=== PATIENT | female | born 1955 | race Two or more races ===

== ENCOUNTER 2017-01-25 07:13 | Inpatient (IN) | payer OTHER ==
[~2017-01-25] VITALS: Ht 157.5 cm; Wt 62.7 kg
--- NOTE | 2017-01-25 07:18 | NUR ---
PT BIBRA 40 FROM HOME C/O NAUSEA AND VOMITING, DENIES DIARRHEA. PT AOX3 RR EVEN AND UNLABORED. NO SOB NOTED. NAD NOTED. NO NVD AT THIS TIME. PT GOWNED AND PLACED ON MONITOR WAITING FOR MD ROTH.
[2017-01-25] MEDS ORDERED: ONDANSETRON HCL/PF 4 MG/2 ML VIAL ONE (07:30)
[2017-01-25] MEDS ORDERED: ONDANSETRON HCL/PF 4 MG/2 ML VIAL IVP ONE (07:30)
[2017-01-25] MEDS ORDERED: IV NS 0.9% 1,000 ML BAG IV ONE (07:30)
--- NOTE | 2017-01-25 07:32 | NUR ---
REPORT GIVEN TO YOHAN MONAHAN FOR STEFFANY.
[2017-01-25 07:43] LABS: BASOPHILS % (AUTO) 0.4 % (0.0-2.0); EOSINOPHILS # (AUTO) 0.1 /CMM (0.0-0.7); EOSINOPHILS % (AUTO) 1.2 % (0.0-6.0); HEMATOCRIT 38 % (33-45); HEMOGLOBIN 13.1 g/dL (11.5-14.8); LYMPHOCYTES # (AUTO) 3.3 /CMM (0.8-4.8); LYMPHOCYTES % (AUTO) 50.6 % (20.0-44.0); MEAN CORPUSCULAR HEMOGLOBIN 29 PG (26.0-33.0); MEAN CORPUSCULAR HGB CONC 34 g/dl (31.0-36.0); MEAN CORPUSCULAR VOLUME 85 fL (82-100); MONOCYTES # (AUTO) 0.4 /CMM (0.1-1.30); MONOCYTES % (AUTO) 6.6 % (2.0-12.0); NEUTROPHILS # (AUTO) 2.7 /CMM (1.8-8.9); NEUTROPHILS % (AUTO) 41.2 % (43.0-81.0); PLATELET COUNT (AUTO) 275 /CMM (150-450); RDW COEFFICIENT OF VARIATION 13.5 (11.5-15.0); RED BLOOD CELL COUNT(AUTO) 4.53 MIL/uL (4.0-5.2); WHITE BLOOD COUNT (AUTO) 6.4 K/uL (4.3-11.0)
--- NOTE | 2017-01-25 07:48 | NUR ---
PT TAKEN TO CT.
[2017-01-25 07:53] LABS: INR 0.92 (0.87-1.13); PROTHROMBIN TIME 9.8 SECS (9.5-12.7)
[2017-01-25 07:55] LABS: ALANINE AMINOTRANSFERASE 29 U/L (12-78); ALBUMIN 3.6 g/dL (3.4-5.0); ALKALINE PHOSPHATASE 100 U/L (46-116); ASPARTATE AMINOTRANSFERASE 17 U/L (15-37); BILIRUBIN,TOTAL 0.3 mg/dL (0.2-1.0); CALCIUM, SERUM 8.7 mg/dL (8.5-10.1); CARBON DIOXIDE 23 mmol/L (21-32); CHLORIDE 107 mmol/L (98-107); CREATININE 0.6 mg/dL (0.6-1.3); GLUCOSE 177 mg/dL (74-106); POTASSIUM 3.3 mmol/L (3.5-5.1); SODIUM SERUM 144 mmol/L (136-145); TOTAL PROTEIN, SERUM 7.6 g/dL (6.4-8.2); UREA NITROGEN, BLOOD 11 mg/dL (7-18)
[2017-01-25 07:57] LABS: TROPONIN I < 0.017 ng/mL (0.00-0.056)
--- NOTE | 2017-01-25 08:15 | NUR ---
PT'S [id number] ANANT [phone].
[2017-01-25] MEDS ORDERED: IV NS 0.9% 250 ML IV ONE (09:26)
[2017-01-25] MEDS ORDERED: IOHEXOL-350 100 ML VIAL IV ONE (09:26)
[2017-01-25] MEDS ORDERED: CT SWABBABLE VALVE TRANS SET 1 EA INFUS.SET MC ONE (09:26)
[2017-01-25] MEDS ORDERED: POTASSIUM CL. PREMIX PERIPHER. 100 ML ONE (10:01)
[2017-01-25] MEDS: POTASSIUM CL. PREMIX PERIPHER. 50 ML IV SCH ×2 (10:20→11:25)
[2017-01-25 10:37] LABS: BILIRUBIN,URINE Negative (NEGATIVE); BLOOD, URINE Trace-intact Ery/uL (NEGATIVE); COLOR,URINE Yellow (YELLOW); KETONES,URINE Negative (NEGATIVE); LEUKOCYTE ESTERASE ,URINE Negative (NEGATIVE); NITRITE, URINE Negative (NEGATIVE); PH,URINE 8.5 (5.0-8.0); PROTEIN,URINE Negative (NEGATIVE); UGLUCOSE Negative (NEGATIVE); UROBILINOGEN,URINE 0.2 EU/dL (0.2)
[2017-01-25 10:38] LABS: APPEARANCE,URINE SLIGHTLY CLOUDY (CLEAR)
--- NOTE | 2017-01-25 10:41 | NUR ---
PATIENT IS GOING TO 111-1 YOHAN VELASQUEZ FOR REPORT
[2017-01-25] MEDS ORDERED: MECL-102 PO (10:51)
[2017-01-25] MEDS ORDERED: OMEP20CA10 PO (10:51)
[2017-01-25] MEDS ORDERED: METO25TA20 PO (10:51)
[2017-01-25 11:07] LABS: RBC,URINE 0-2 /HPF (0-2)
[2017-01-25 11:08] LABS: BACTERIA,URINE Few /HPF (None Seen); SQUAMOUS EPITHELIAL CELL,UR Rare /HPF (None Seen); WBC,URINE 0-2 /HPF (0-3)
--- NOTE | 2017-01-25 11:15 | NUR ---
REPORT GIVEN TO ROBBIE ALMANZAR FOR 111-1
--- NOTE | 2017-01-25 14:10 | NUR ---
SALON MANAGERSEED CORN MANAGER PRODUCTION NOTE: PT CAME FROM ED VIA GURNEY WITH AN ADMITTING DX OF DIZZINESS. PT IS A 61 Y/O FEMALE, A&OX4, COOK ISLANDER SPEAKING, UNDER THE SERVICE OF RUBEN SHETTY. ON RA, RESPIRATIONS EVEN AND UNLABORED WITH NO SOB NOTED. LAC #18 INTACT AND PATENT. SKIN WARM AND INTACT, AMBULATORY. TELE STATUS ON MONITOR WITH SR. DENIES PAIN. BED LOW, LOCKED WITH CALL LIGHT WITHIN REACH. ALL NEEDS MET AND ANTICIPATED. WILL CONT TO MONITOR.
[2017-01-25 14:14] VITALS: BP 143/83
[2017-01-25] MEDS ORDERED: ONDANSETRON HCL/PF 4 MG/2 ML VIAL IVP PRN (14:30)
[2017-01-25] MEDS ORDERED: ACETAMINOPHEN 325 MG TABLET PO PRN (14:30)
[2017-01-25] MEDS ORDERED: MAG HYDROX/AL HYDROX/SIMETH 30 ML UDC PO PRN (14:30)
[2017-01-25] MEDS ORDERED: HYDROCODONE/APAP 5/325MG 1 EACH TABLET PO PRN (14:30)
[2017-01-25] MEDS ORDERED: MAGNESIUM HYDROXIDE 30 ML UDC PO PRN (14:30)
[2017-01-25] MEDS ORDERED: ZOLPIDEM TARTRATE 5 MG TABLET PO PRN (14:30)
[2017-01-25] MEDS ORDERED: MECLIZINE HCL 25 MG TABLET PO PRN (14:30)
[2017-01-25] MEDS ORDERED: Z GUARD REMEDY 2 OZ OINT TP PRN (14:30)
--- NOTE | 2017-01-25 14:45 | NUR ---
PHYSICAL AERODYNAMICIST NOTE: RUBEN SHETTY AT BEDSIDE.
[2017-01-25] MEDS: NITROFURANTOIN/NITROFURAN MAC 100 MG CAPSULE PO SCH ×2 (14:49→21:27)
[2017-01-25 15:00] VITALS: BP_SYST 123; BP_SYST 124; BP_SYST 136; BP_DIAS 73; BP_DIAS 76; BP_DIAS 80
--- NOTE | 2017-01-25 15:00 | NUR ---
YOUNG ADULT LIBRARIAN NOTE: ORTHOSTATIC BLOOD PRESSURE TEST RESULTS SUPINE BP 124/73 P 63 SITTING BP 123/76 P 64 STANDING BP 136/80 P 75 MD AWARE. WILL CONT TO MONITOR.
[2017-01-25 18:00] VITALS: BP 110/55
[2017-01-25] MEDS: METOPROLOL TARTRATE 25 MG TABLET PO SCH (18:43)
--- NOTE | 2017-01-25 19:01 | NUR ---
SENIOR BUSINESS INTELLIGENCE ANALYST NOTE: NO ACUTE CHANGES DURING SHIFT. RESPIRATIONS EVEN AND UNLABORED. LAC #18 INTACT AND PATENT. TELE STATUS ON MONITOR WITH SR. DENIES PAIN. BED LOW, LOCKED WITH CALL LIGHT WITHIN REACH. ORDERS CARRIED OUT. WILL ENDORSE TO BINGO WORKER NURSE FOR STEFFANY.
[2017-01-25 20:00] VITALS: BP_SYST 118; BP_SYST 125; BP_SYST 99; BP_DIAS 56; BP_DIAS 61; BP_DIAS 69
--- NOTE | 2017-01-25 20:56 | NUR ---
TELE-1/CARBON ROD INSERTER PT TRANSFERRED TO ROOM 120-1 FOR PT SATISFACTION.
[2017-01-26] VITALS (11 sets, daily range): BP systolic 99–140; BP diastolic 56–77
[2017-01-26 07:25] LABS: BASOPHILS % (AUTO) 0.4 % (0.0-2.0); EOSINOPHILS # (AUTO) 0.1 /CMM (0.0-0.7); EOSINOPHILS % (AUTO) 1.3 % (0.0-6.0); HEMATOCRIT 40 % (33-45); HEMOGLOBIN 13.6 g/dL (11.5-14.8); LYMPHOCYTES # (AUTO) 2.5 /CMM (0.8-4.8); LYMPHOCYTES % (AUTO) 38.6 % (20.0-44.0); MEAN CORPUSCULAR HEMOGLOBIN 29 PG (26.0-33.0); MEAN CORPUSCULAR HGB CONC 34 g/dl (31.0-36.0); MEAN CORPUSCULAR VOLUME 85 fL (82-100); MONOCYTES # (AUTO) 0.4 /CMM (0.1-1.30); MONOCYTES % (AUTO) 6.5 % (2.0-12.0); NEUTROPHILS # (AUTO) 3.4 /CMM (1.8-8.9); NEUTROPHILS % (AUTO) 53.2 % (43.0-81.0); PLATELET COUNT (AUTO) 287 /CMM (150-450); RDW COEFFICIENT OF VARIATION 13.4 (11.5-15.0); WHITE BLOOD COUNT (AUTO) 6.4 K/uL (4.3-11.0)
--- NOTE | 2017-01-26 07:30 | NUR ---
HEAVY THREADER AM NOTES: PT IN BED, ASLEEP, AROUSES TO NAME AND TOUCH, AO X 4, DIVEHI SPEAKING, ON RA, NAD, NO SOB, RESPIRATION UNLABORED, LAF G18, FLUSHES WELL SITE CLEAR, TELEMETRY READS SR HR 62, DENIES ANY CHEST PAIN OR DISCOMFORT, DENIES NAUSEA/DIZZINESS, SKIN WARM AND INTACT, AMBULATORY. BED LOW, LOCKED WITH CALL LIGHT WITHIN REACH. ALL NEEDS MET AND ANTICIPATED. WILL CONT TO MONITOR.
[2017-01-26 07:40] LABS: CALCIUM, SERUM 8.8 mg/dL (8.5-10.1); CREATININE 0.8 mg/dL (0.6-1.3); MAGNESIUM 1.9 mg/dL (1.8-2.4); POTASSIUM 3.9 mmol/L (3.5-5.1)
[2017-01-26] MEDS: PANTOPRAZOLE 40 MG TABLET.DR PO SCH (08:49)
[2017-01-26] MEDS: NITROFURANTOIN/NITROFURAN MAC 100 MG CAPSULE PO SCH ×2 (08:49→20:17)
[2017-01-26] MEDS: METOPROLOL TARTRATE 25 MG TABLET PO SCH ×2 (08:53→17:05)
--- NOTE | 2017-01-26 09:30 | NUR ---
APPLICATION SPECIALIST NOTES ADMINISTERED DUE MEDS. ORTHOSTATIC CHECKED AND RECORDED.
--- NOTE | 2017-01-26 10:30 | NUR ---
MS RN NOTES DR. GUERRERO AT BEDSIDE EARLIER.
--- NOTE | 2017-01-26 14:20 | NUR ---
MS RN NOTES PT PICKED UP FOR MRI HEAD WITHOUT CONTRAST.
--- NOTE | 2017-01-26 14:45 | NUR ---
MS RN NOTES PATIENT BACK FROM MRI
--- NOTE | 2017-01-26 18:27 | NUR ---
MS RN NOTES PATIENT RESTING COMFORTABLY IN BED, NOT IN ANY DISTRESS. ALL NEEDS MET. SAFETY MEASURES IN PLACE. NO OTHER SIGNIFICANT CHANGE IN CONDITION. WILL ENDORSE TO NEXT SHIFT FOR STEFFANY.
--- NOTE | 2017-01-26 19:15 | NUR ---
COMMUNICATIONS TECH OPENING NOTES RECEIVED REPORT FROM AM RN. PATIENT A/A/O X4, ABLE TO MAKE NEEDS KNOWN. BREATHING EVEN AND UNLABORED, ON ROOM AIR. PULSES PRESENT. LEFT AC IV #18 CDI, SALINE LOCK. DENIES ANY PAIN OR DISCOMFORT @ THIS TIME. DENIES ANY DIZZINESS OR NAUSEA. SAFETY MEASURES IN PLACE W/ SIDE RAILS UP, BED LOCKED AND IN LOWEST POSITION, CALL LIGHT WITHIN REACH. WILL CONTINUE TO MONITOR.
[2017-01-27 04:00] VITALS: BP_SYST 114; BP_SYST 98; BP_DIAS 51; BP_DIAS 67
--- NOTE | 2017-01-27 07:00 | NUR ---
FACULTY CRIMINAL JUSTICE OPENING NOTES RECEIVED PATIENT IN BED A/A/O X4, ABLE TO MAKE NEEDS KNOWN. BREATHING EVEN AND UNLABORED, ON ROOM AIR. PULSES PRESENT. LEFT AC IV #18 CDI, SALINE LOCK. DENIES ANY PAIN OR DISCOMFORT @ THIS TIME. DENIES ANY DIZZINESS OR NAUSEA. SAFETY MEASURES IN PLACE W/ SIDE RAILS UP, BED LOCKED AND IN LOWEST POSITION, CALL LIGHT WITHIN REACH. WILL CONTINUE TO MONITOR.
[2017-01-27 08:00] VITALS: BP 113/66
[2017-01-27 09:36] VITALS: BP 113/66
[2017-01-27] MEDS: METOPROLOL TARTRATE 25 MG TABLET PO SCH (09:36)
[2017-01-27] MEDS: NITROFURANTOIN/NITROFURAN MAC 100 MG CAPSULE PO SCH (09:36)
[2017-01-27] MEDS: PANTOPRAZOLE 40 MG TABLET.DR PO SCH (09:39)
[2017-01-27] MEDS ORDERED: DOCUSATE SODIUM 100 MG CAPSULE PO SCH (11:30)
[2017-01-27] MEDS ORDERED: DIAZEPAM 5 MG TABLET PO PRN (11:30)
[2017-01-27] MEDS ORDERED: DIAZEPAM 5 MG TABLET PO SCH (13:00)
--- NOTE | 2017-01-27 14:00 | NUR ---
SWITCHBOARD OPERATOR SUPERVISOR CLOSING NOTES PATIENT DISCHARGED , DISCHARGE PAPERWORK EXPLAINED PATIENT ACKNOWLEDGED UNDERSTANDING . PATIENT HAS BEEN A/A/O X4 THROUGHOUT THE DAY , ABLE TO MAKE NEEDS KNOWN. BREATHING EVEN AND UNLABORED, ON ROOM AIR. PULSES PRESENT. LEFT AC IV #18 REMOVED WITH OUT ISSUE. PATIENT DENIES ANY PAIN OR DISCOMFORT @ THIS TIME. DENIES ANY DIZZINESS OR NAUSEA. PATIENT SON AND DAUGHTER IN LAW HERE TO CRACKING UNIT OPERATOR PATIENT , PATIENT OPTED OUT OF A WHEEL CHAIR STATES SHE WOULD LIKE TO WALK . RN ACKNOWLEDGED .
== END 2017-01-27 16:01 | disposition home or self-care (01) | DRG 58 ==
LOC: ER 07:15 → TELE1 11:49 → MEDSG1 01-26 10:34
PROVIDERS: ADMIT Nurse Practitioner Acute Care; ATTEND Nurse Practitioner Acute Care
DX: R26.9 Unspecified abnormalities of gait and mobility (principal); I10 Essential (primary) hypertension; E86.0 Dehydration; H81.49 Vertigo of central origin, unspecified ear; E87.6 Hypokalemia; R51 Headache
CPT/HCPCS: 36415; 70450-TC; 70496-TC; 70498-TC; 70551-TC; 80048-TC; 80061-TC; 80076-TC; 81000-TC; 83735-TC; 84100-TC; 84484-TC; 85025-TC; 85730-TC; 87081-TC; 87086-TC; A4606; J2405; J3480; J7030; J7050; Q9967; Z7610

== ENCOUNTER 2018-10-11 08:57 | Emergency (ER) | payer OTHER ==
[~2018-10-11] VITALS: Ht 160 cm; Wt 63.5 kg
[~2018-10-11 08:57] MED LIST: MECL-102 PO; METO25TA20 PO; OMEP20CA10 PO
--- NOTE | 2018-10-11 08:57 | NUR ---
PT BIBRA FROM HOME FOR DIZZINESS, PT AAOX4, PT AMBULATORY, VSS, NAD NOTED, PENDING MD ROTH
[2018-10-11] MEDS ORDERED: ONDANSETRON HCL/PF 4 MG/2 ML VIAL ONE (09:25)
[2018-10-11] MEDS ORDERED: METOCLOPRAMIDE HCL 10 MG/2 ML VIAL ONE (09:26)
[2018-10-11 09:28] LABS: BASOPHILS % (AUTO) 0.7 % (0.0-2.0); EOSINOPHILS % (AUTO) 1.1 % (0.0-6.0); HEMATOCRIT 41 % (33-45); HEMOGLOBIN 13.9 g/dL (11.5-14.8); LYMPHOCYTES # (AUTO) 2.5 /CMM (0.8-4.8); MEAN CORPUSCULAR HGB CONC 34 g/dl (31.0-36.0); MEAN CORPUSCULAR VOLUME 88 fL (82-100); MONOCYTES # (AUTO) 0.3 /CMM (0.1-1.30); MONOCYTES % (AUTO) 6.4 % (2.0-12.0); NEUTROPHILS # (AUTO) 1.8 /CMM (1.8-8.9); NEUTROPHILS % (AUTO) 37.8 % (43.0-81.0); PLATELET COUNT (AUTO) 279 /CMM (150-450); RED BLOOD CELL COUNT(AUTO) 4.64 MIL/uL (4.0-5.2); WHITE BLOOD COUNT (AUTO) 4.7 K/uL (4.3-11.0)
[2018-10-11] MEDS ORDERED: METOCLOPRAMIDE HCL 10 MG/2 ML VIAL IV ONE (09:30)
[2018-10-11] MEDS ORDERED: ONDANSETRON HCL/PF 4 MG/2 ML VIAL IVP ONE (09:30)
[2018-10-11] MEDS ORDERED: IV NS 0.9% 1,000 ML BAG IV ONE (09:30)
[2018-10-11 09:35] LABS: CALCIUM, SERUM 8.4 mg/dL (8.5-10.1); CREATININE 0.6 mg/dL (0.6-1.3); POTASSIUM 3.8 mmol/L (3.5-5.1)
[2018-10-11 09:41] LABS: ALBUMIN 3.7 g/dL (3.4-5.0); BILIRUBIN,DIRECT 0.1 mg/dL (0.0-0.2); BILIRUBIN,TOTAL 0.4 mg/dL (0.2-1.0); TOTAL PROTEIN, SERUM 7.5 g/dL (6.4-8.2)
--- NOTE | 2018-10-11 09:43 | NUR ---
[phone] DAUGHTER IN LAW ANANT
[2018-10-11] MEDS ORDERED: DIAZEPAM 5 MG TABLET ONE (10:59)
[2018-10-11] MEDS ORDERED: DIAZEPAM 5 MG TABLET PO ONE (11:00)
--- NOTE | 2018-10-11 12:04 | NUR ---
Patient discharged to home in stable condition. Written and verbal after care instructions given. Patient verbalizes understanding of instruction. IV removed. Catheter intact and site benign. Pressure and 4x4 applied to site. No bleeding noted.
[2018-10-11 12:08] VITALS: BP 119/68
== END 2018-10-11 12:11 | disposition home or self-care (01) ==
LOC: ER 08:57
DX: R42 Dizziness and giddiness (principal); R51 Headache; I10 Essential (primary) hypertension
CPT/HCPCS: 36415; 70450; 80048; 80076; 85025; 96361; 96374; 96375; 99284; J2405; J2765; J7030

== ENCOUNTER 2023-04-07 19:11 | Emergency (ER) | payer OTHER ==
[~2023-04-07] VITALS: Ht 160 cm; Wt 62.6 kg
[~2023-04-07 19:11] MED LIST changes: -MECL-102 PO; +MECL-159 PO; -OMEP20CA10 PO; +OMEP20CA15 PO
[2023-04-07 19:21] VITALS: BP 147/85; TEMP 98.7
[2023-04-07] MEDS ORDERED: CARI350T PO (19:48)
[2023-04-07] MEDS ORDERED: GABA300C PO (19:48)
[2023-04-07] MEDS ORDERED: KETOROLAC TROMETHAMINE INJ 30 MG/ML VIAL ONE (19:56)
[2023-04-07] MEDS ORDERED: KETOROLAC TROMETHAMINE INJ 60 MG/2 ML VIAL IM ONE (20:00)
[2023-04-07 20:03] VITALS: O2SAT 100
== END 2023-04-07 20:04 | disposition home or self-care (01) ==
LOC: ER 19:16
DX: M54.12 Radiculopathy, cervical region (principal); I10 Essential (primary) hypertension
CPT/HCPCS: 99283; 96372; J1885